=== PATIENT | female | born 1985 | race Caucasian/White ===

== ENCOUNTER 2022-05-14 11:35 | Day surgery (SDC) | payer BC, SELFPAY ==
[2022-05-14] VITALS (17 sets, daily range): BP systolic 87–123; BP diastolic 42–76; PULSE 48–88; RESP 16; TEMP 36.6–37; O2SAT 95–99; BMI 20.3
[2022-05-14] MEDS: LACTATED RINGERS 1000 ML 1,000 ML 100 ML IV (12:00)
--- NOTE | 2022-05-14 12:14 | SUR.PREOP ---
Presented negative COVID test at home. Taken at 5 pm on 05/13/2022.
[2022-05-14] MEDS: SODIUM CHLORIDE 0.9 % (FLUSH) 10 ML SYRINGE IVF (12:15)
[2022-05-14] MEDS: CEFAZOLIN 2 GM INJ IVP (13:00)
[2022-05-14] MEDS: LACTATED RINGERS 1000 ML 1,000 ML 75 ML IV (13:00)
[2022-05-14 13:42] LABS: Ur HCG Qualitative* Negative (Negative)
[2022-05-14] MEDS: BUPIVACAINE 0.25% 30 ML INJECTION (14:10)
--- NOTE | 2022-05-14 14:14 | P.GSOP_ITS ---
Operative Note Date of procedure: 05/14/22 Type of Procedure: 1. Open umbilical hernia repair with mesh. Procedure Description: After discussing the risks and benefits of the procedure, the patient signed informed consent.? The operative site was marked and the patient was brought to the operating room and placed on the operating table in supine position.? Care was taken to pad the patient's pressure points.?? The patient was then intubated by anesthesia.?? The operative site was then prepped and draped in the usual sterile fashion.? A time-out was then performed. A curvilinear skin incision was made with a scalpel just above the umbilicus excising an ellipse of redundant skin. Subcutaneous tissue was dissected with electrocautery down to the hernia sac and anterior fascia. The hernia sac was dissected off of the anterior fascia and the umbilicus. Subcutaneous fat around the fascial defect was dissected away from the fascial defect with cautery. The hernia sac was entered during mobilization and preperitoneal fat was incarcerated in the hernia sac. I then developed preperitoneal space for mesh insertion with cautery the fascial defect was approximately 1.8 cm. A small Ventralex ST mesh patch was then inserted into preperitoneal space and secured to the fascia using 0-0 Neurolon interrupted stitches. Fascia was re- approximated over the mesh with a running 0-0 Nurolon stitch. Additional local anesthetic was injected into subcutaneous tissues. Redundant floppy skin was excised to make the umbilicus cosmetically pleasing. An umbilicus was tacked down with interrupted 3-0 Vicryl stitches. Subdermal layer was closed with interrupted sutures using 3-0 Vicryl. Skin was closed with 4-0 Monocryl using subcuticular stitch. Steri strips were applied over the incision. I then placed a folded sterile 2 x 2 and 4x4 gauze over the incision and covered it with tape. All counts were correct at the end of the case. Patient tolerated the procedure well and was transferred to PACU without any complications. Findings: Preperitoneal fat incarcerated in the hernia sac. The hernia was repaired with small mesh patch. Implants: mesh Anesthesia: GETA Surgeon: Jodee George MD Estimated blood loss (mL): 5 Condition: stable Disposition: PACU
--- NOTE | 2022-05-14 14:31 | W.ANESCHARGE ---
Anesthesia Charges Start Date/Time Anesthesia Start Date: 05/14/22 Anesthesia Start Time: 12:56 Stop Date/Time Anesthesia Stop Date: 05/14/22 Anesthesia Stop Time: 14:21 Summary Emergency: No
[2022-05-14] MEDS: fentaNYL 100 MCG/2 ML inj 50 MCG IVP (14:38)
--- NOTE | 2022-05-14 14:52 | SUR.PHASEI ---
pt awake and says pain is beter wanting to go back to [facility]ds
--- NOTE | 2022-05-14 15:05 | W.ANESCHARGE ---
Anesthesia Charges Start Date/Time Anesthesia Start Date: 05/14/22 Anesthesia Start Time: 12:56 Stop Date/Time Anesthesia Stop Date: 05/14/22 Anesthesia Stop Time: 14:21 Summary Emergency: No
== END 2022-05-14 16:34 | disposition home or self-care (01) ==
PROVIDERS: Anesthesiology; PCP Family Medicine; Visit Provider Surgery
PROC: (CPT 49587; principal; 2022-05-14 13:00)
DX: K42.0 Umbilical hernia with obstruction, without gangrene (principal)
CPT/HCPCS: 49587; 00750; 00830; 81025; A4467; C1781; J0330; J0690; J1100; J2250; J2405; J2704; J2710; J3010; J3490; J7120

== ENCOUNTER 2024-10-09 20:29 | Emergency (ER) | payer BC, SELFPAY ==
--- OUTSIDE RECORDS SUMMARY | 2024-10-09 20:32 | XMS_ITS | Patient Health Record ---
Author Organization [facility] Address [address] [place] [address] Care Team Providers Care Employment Coach Name Role Phone PCP, Does not have a Primary Care Provider Best Brewer Unavailable [phone] Allergies Allergen (clinical drug ingredient) Drug/Non Drug Allergy documented on EMR Reaction Allergy Type Onset Date Status nickel Nickel Unknown Allergy Active Results Component Value Reference Range Notes X ray : Foot, left 3v Reviewed date:01/12/2024 04:43:07 PM Interpretation: Performing Lab: Notes/Report: LEFT FOOT, 3 views Comparison: None. FINDINGS: There is no evidence of acute fracture, dislocation, or osseous lesion. The joint spaces appear preserved. Tarsal bone alignment is normal. The adjacent soft tissues appear normal. There is no radiopaque foreign body. IMPRESSION: Normal left foot. /[place] LEFT FOOT, 3 views Comparison: None. FINDINGS: There is no evidence of acute fracture, dislocation, or osseous lesion. The joint spaces appear preserved. Tarsal bone alignment is normal. The adjacent soft tissues appear normal. There is no radiopaque foreign body. IMPRESSION: Normal left foot. Electronically jessica d by: Richard Fitzpatrick M.D. on 01/12/2024 04:08:42 PM US/[place] X ray : Ankle, left 3 views Reviewed date:01/12/2024 01:38:59 PM Interpretation:normal Performing Lab: Notes/Report: Exam Description: Three views of the ankle left. Comparison: None provided. Findings There is no significant soft tissue swelling appreciated. The soft tissues appear normal. There is no fracture or other acute osseous abnormality. Alignment of the ankle mortise is normal. IMPRESSION: There is no fracture or other acute osseous abnormality identified. /[place] Exam Description: Three v iews of the ankle left. Comparison: None provided. Findings There is no signific ant soft tissue swelling appreciated. The soft tissues appear normal. There is no fracture or other acute osseous abnormality. Alignment of the ank le mortise is normal. IMPRESSION: There is no fracture or other acute osseous abnormality identified. Electronically jessiac d by: Vadim Parikh M.D. on 01/12/2024 09:49:23 AM /[place] Reason For Referral No Information Social History Tobacco Use: Social History Observation Description Date Details (start date - stop date) Never Smoker NA - NA Tobacco Control (Standard) Question Answer Notes Tobacco use: Nonsmoker Vital Signs Heart Rate 60 /min 01/12/2024 Temperature 98.1 degrees Fahrenheit 01/12/2024 Blood pressure diastolic 77 mm Hg 01/12/2024 Oximetry 98 % 01/12/2024 Weight-kg 53.52 Kg 01/12/2024 Blood pressure systolic 124 mm Hg 01/12/2024 Weight 118 lbs 01/12/2024 Encounters Encounter Location Date Provider Diagnosis [address] [address] 01/12/2024 Best Carreno Injury of left ankle, initial encounter S99.912A Assessments Encounter Date Diagnosis (ICD Code) Assessment Notes Treatment Notes Treatment Clinical Notes Section Notes 01/12/2024 Injury of left ankle, initial encounter (ICD-10 - S99.912A) left ankle sprain, xray reassuring against fracture. Aircast for support, compression and protection along with ice and elevation for next 48-72 hours, then start working on range of motion exercises as we reviewed today. Plan Of Treatment No Information Insurance Providers Payer Name Payer Address Payer Phone Subscriber Number Group Number Insured Name Patient Relationship to Insured Coverage Start Date Coverage End Date [facility] [address] [place] [address] [id number] JAMEY LAGUNAS Self - patient is the insured
--- OUTSIDE RECORDS SUMMARY | 2024-10-09 20:32 | XMS_ITS | Clinical Summary ---
Author Organization [facility] Address [address] [place] [address] Care Team Providers Care Rib Cutter Name Role Phone Kati Lopez MD Primary Care Provider Allergies Active Allergy Reactions Criticality Noted Date Comments Nickel Rash 06/16/2013 Medications durable medical equipment (DME)Indication s:Seasonal affective disorder SAD lamp. 10,000 Luxe. 20-30 minutes daily. 1 Each 07/10/2018 Active multivitamin (MVI) tablet Take 1 Tablet by mouth once daily. 0 03/16/2021 Active FLUoxetine (PROZAC) 20 mg capsuleIndicati ons:Anxiety Take 1 Capsule (20 mg) by mouth every morning. 90 Capsule 3 05/21/2022 Active benzonatate (Tessalon Perles) 100 mg capsuleIndicati ons:Viral URI Take 1 Capsule (100 mg) by mouth 3 times daily if needed for Cough. 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 Plan: Pap and HPV in 5 years. Normal vaginal delivery 11/01/2021 Umbilical hernia without obstruction and without gangrene 09/16/2016 Resolved Problems Problem Noted Date Diagnosed Date Resolved Date Encounter for supervision of normal in second trimester 09/16/2016 08/03/2020 Overview (01/18/2019): Component Latest Ref Rng & Units 01/08/2019 Culture No Group B Streptococcus isolated. Estimated Date of Delivery: 02/04/19 Patient's last menstrual period was 04/30/2018 (exact date). Last Tdap- 11/27/2018 Last Flu vaccine- 03/29/2018 Glucose (GTT) result- Component Latest Ref Rng & Units 10/30/2018 HEMOGLOBIN 12.0 - 16.0 g/dL 13.5 MCV 80 - 100 fL 94 GLUCOSE,GESTATIONAL 65 - 139 mg/dL 82 TREPONEMA PALLIDUM Negative Negative 20 week US:IMPRESSION: 1.Breech presentation. 2.No intrinsic abnormalities noted on anatomic survey. 3.Composite ultrasound age 20 weeks 0 day with MONI of 02/05/2019 with an earlier established MONI of 02/05/2019. Allergies Allergen Reactions Nickel Rash Obstetric History T2 L2 SAB0 TAB0 Ectopic0 Multiple0 Live Births2 # Outcome Date GA Lbr Bahman/2nd Weight Sex Delivery Anes PTL Lv 3 Current 2 Term 06/20/13 39w6d 3.41 kg (7 lb 8.3 oz) M Vag NICOLETTE Name: CLAIR RALPH(JAMEY MOELLER) Apgar1: 8 Apgar5: 9 1 Term Create lab flowsheet for OB labs- Component Latest Ref Rng & Units 06/10/2018 06/10/2018 06/10/2018 3:47 PM 3:47 PM 3:47 PM ANTIBODY SCREEN Negative Negative SPECIMEN EXPIRATION DATE/TIME 06/13/18 23:59 HEMOGLOBIN 12.0 - 16.0 g/dL 13.7 MCV 80 - 100 fL 91 RUBELLA IGG ANTIBODY Positive 1.97 HEMOGLOBIN A1C SCREENING <6.4 % 5.2 ABORH A Rh Positive HBSAG Nonreactive Nonreactive HEPATITIS C ANTIBODY Non-Reactive Non-Reactive HIV-1/HIV-2 ANTIBODY Non-Reactive Non-Reactive TREPONEMA PALLIDUM Negative Negative Past Medical History: Diagnosis Date No Significant Past Medical History Past Surgical History: Procedure Laterality Date VAGINAL DELIVERY WISDOM TEETH EXTRACTION No data on file. Problems (from 06/10/18 to present) No problems associated with this episode. Janki Monet, RNC.....07/13/2018 8:13 AM Active labor at term 06/20/2013 019 Immunizations Immunization Administration Dates Next Due COVID-19 vaccine (Pfizer-Bio NTech 30mcg/0.3mL) 12YO+ BIVALENT PF, MDV 04/01/2022 Hepatitis A (Adult) 02/03/2008 Hepatitis B, Unspecified 05/27/2000,12/11/1999,0 11/08/1999 Influenza Virus, Unspecified 03/29/2018,04/09/20 13 Influenza, IIV3 (Age >=3 years) 04/12/2016 Influenza, IIV4 04/01/2022,,03/18/2019,04/18 MMR 11/08/1999 Meningococcal Vaccine (Menomune) 10/17/2005 Td, Preservative Free (age >= 7 Years) 0 Tdap 11/27/2018,12/02/2016,04/09/2013 Family History Relation Name Status Comments Father Alive Mother Alive Social History Tobacco Use Types Packs/Day Years Used Date Smoking Tobacco: Never Smokeless Tobacco: Never Tobacco Cessation:Counseling Given: No Alcohol Use Standard Drinks/Week Comments Yes 6 (1 standard drink = 0.6 oz pur e alcohol) PHQ-2 Answer Date Recorded PHQ-2 TOTAL SCORE 1 05/21/2022 Social Connections Answer Date Recorded Do you often feel lonely or isolated from those around you? 0 05/09/2023 Financial Resource Strain Answer Date R ecorded Difficulty of Paying Living Expenses 3 05/09/2023 Difficulty of Paying Living Expenses Not on file 05/09/2023 Food Insecurity Answer Date Recorded Do you worry your food will run out before you are able to buy more? 1 05/09/2023 Transportation Needs Answer Date Record ed Does lack of transportation keep you from medica l appointments? 1 05/09/2023 Does lack of transportation keep you from work, meetings or getting things that you need? 1 05/09/2023 Housing Stability Answer Date Recorded What is your housing situation today? 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 SYSTEMS ENGINEER Gender Identity Not on file Sexual Orientation Not on file Occupation Industry Job Start Date Job End Date Not on file Not on file Not on file Not on file Obstetrics History Para Term AB IAB SAB Ectopic Multiple Livin g Live Births 3 2 2 2 2 Date Outcome GA Total Labor Labor/2nd/3rd Weight Sex Type Anes PTL Nicolette A1 A5 Name Clin Term 013 Term 39w 6d 3.41 kg (7 lb 8.3 oz) M Vag Living 8 9 CLAIR STEIN (IVAN Osman) Delivery Location:[facility] Last Filed Vital Signs Vital Sign Reading Time Taken Comments Blood Pressure 113/75 06/08/2024 3:11 PM [employer] SYSTEMS ENGINEER Pulse 53 06/08/2024 3:11 PM [employer] SYSTEM[employer] ENGINEER Temperature 36.8 C (98.2 F) 05/09/2023 12:58 PM [employer] SYSTEMS ENGINEER Respiratory Rate 14 12/13/2020 1:23 PM CDT Oxygen Saturation 100% 06/08/2024 3:11 PM [employer]ION[employer] SYSTEMS ENGINEER Inhaled Oxygen Concentration - - Weight 54.7 kg (120 lb 11.2 oz) 06/08/2024 3:11 PM [employer] SYSTEMS ENGINEER Height 161.5 cm (5' 3.58) 04/01/2022 7:35 AM CD T Body Mass Index 20.99 04/01/2022 7:35 AM CDT Plan of Treatment Health Maintenance Due Date Last Done Comments BMI (ht and wt on same day) for age 18+ 04/01/2023 04/01/2022, 11/01/2021, 01/31/2020, Additional history exists Depression screening for age 12+ 05/21/2023 05/21/2022, 04/03/2022, 04/01/2022, Additional history exists COVID-19 vaccine series ( season) 2024 04/01/2022, 06/07/2021, 10/26/2020, Additional history exists Influenza Vaccine (Season Ended) 2025 04/01/2022, 05/02/2021, 03/18/2019, Additional history exists Pap test for age 21-65 04/01/2027 , 04/01/2022, 07/22/2016 Tetanus booster 11/27/2028 11/27/2018, 06/0 10/2016, 04/09/2013, Additional history exists HIV for age 15-65 Completed 06/10/2018, 06/26/2016 Hepatitis C screening for age 18-79 Completed 06/10/2018, 06/26/2016 Tdap Completed 11/27/2018, 06/0 10/2016, 04/09/2013 Pneumococcal series for age 6-49 Aged Out No longer eligible based on patient's age to complete this topic Procedures Procedure Name Priority Date/Time Associated Diagnosis Comments HPV HIGH RISK Routine 04/01/2022 8:24 AM CDT Screening for cervical cancer ANTI HIV 1/2 Routine 06/10/2018 3:47 PM [employer] SYSTEMS ENGINEER Encounter for supervision of normal first in first trimester (HC) ANTI HCV Routine 06/10/2018 3:47 PM [employer] SYSTEMS ENGINEER Encounter for supervision of normal first in first trimester (HC) from Last 3 Months or Most Recently Relevant to Health Maintenance Results * HPV HIGH RISK (04/01/2022 8:24 AM CDT) TYPE 16 Negative Negative 04/03/2022 5:13 PM CDT [facility] TYPE 18 Negative Negative 04/03/2022 5:13 PM CDT [facility] OTHER HIGH RISK TYPES Negative Negative 04/03/2022 5:13 PM CDT [facility] Other (Cervical) Non-Blood / Unknown 04/01/2022 8:24 AM CDT 04/02/2022 8:28 AM CDT Narrative [facility] - 04/03/2022 5:13 PM CDT HPV types 16, 18, 31, 33, 35, 39, 45, 51, 52, 56, 58, 59, 66 and 68 DNA were undetectable or below the pre-set threshold. Methodology: Delphine Jason 4800 HPV Test us Kati Lopez MD MICROBIOLOGY Final Resul t [facility] [address] [place] [address], [place] * ANTI HCV (06/10/2018 3:47 PM AVIONICS SYSTEMS ENGINEER) HEPATITIS C ANTIBODY Non-React ramone Non-React ramone 06/11/2018 5:47 PM AVIONICS SYSTEMS ENGINEER [facility] Comment:Antibodies to HCV no t detected; does not exclude the possibility of exposure to HCV. Blood BLOOD SPECIMEN / Unknown Venipuncture / Unknown 06/10/2018 3:47 PM AVIONICS SYSTEMS ENGINEER 06/10/2018 3:48 PM AVIONICS SYSTEMS ENGINEER Maliha GRANT SEND OUTS Final R esult [facility] [address] [place] [address], [place] * ANTI HIV 1/2 (06/10/2018 3:47 PM [employer]IONICS SYSTEMS ENGINEER) [facility] HIV-1/HIV-2 ANTIBODY Non-Reacti ve Non-Reacti ve 06/11/2018 5:45 PM AVIONICS SYSTEMS ENGINEER [facility] Comment:HIV-1 p24 and HIV-1/ HIV-2 Ab not detected. Blood BLOOD SPECIMEN / Unknown Venipuncture / Unknown 06/10/2018 3:47 PM AVIONICS SYSTEMS ENGINEER 06/10/2018 3:48 PM AVIONICS SYSTEMS ENGINEER Maliha GRANT [employer] Final R esult [facility] [address] [place] [address], from Last 3 Months or Most Recently Relevant to Health Maintenance Insurance [facility] Advance Directives * Full Code (Latest Code Status on File) Date Activated Date Inactivated Comments 06/20/2013 8:12 PM 06/22/2013 3:46 PM * Full Code Date Activated Date Inactivated Comments 06/20/2013 9:19 AM 06/20/2013 8:12 PM * Full Code Date Activated Date Inactivated Comments 06/20/2013 7:49 AM 06/20/2013 9:19 AM Care Teams Rib Cutter Relationship Specialty Start Date End Date Kati Lopez MD [address] [place] [address] PCP - General Family Practice 01/13/17
[2024-10-09 21:00] VITALS: BP 137/87; PULSE 63; RESP 16; TEMP 37.3; O2SAT 99; BMI 20.3
--- NOTE | 2024-10-09 21:14 | CRLHL7_ITS ---
For Patients: As a result of the Century Cures Act, medical imaging exams and procedure reports are released immediately into your electronic medical record. You may view this report before your referring provider. If you have questions, please contact your health care provider. INDICATION: RT ANTERIOR LOWER RIB PAIN, NO KNOWN INJURY. TECHNIQUE: Chest and right ribs 3 views. COMPARISON: None. FINDINGS: Cardiovascular and mediastinum: Heart size and vasculature are normal in caliber and appearance. Mediastinum is within normal limits. Lungs and pleural spaces: Lungs are clear. No sign of infiltrate or mass. No sign of pleural effusion. No pneumothorax. Bones and soft tissues: Detailed oblique images of the right ribs demonstrate no fractures or bone lesions. Few gas-filled bowel loops in the upper abdomen, nonspecific. IMPRESSION: Unremarkable chest and right ribs. Dictated by Mynor Kuhn MD @ 10/09/2024 10:19:46 PM (Electronically Signed)
--- NOTE | 2024-10-09 21:15 | ED_ITS ---
HPI - General Adult General Chief complaint: Chest Pain Stated complaint: Sharp Rib Pain Time Seen by Provider: 10/09/24 21:03 History of Present Illness HPI narrative: This 39-year-old female comes in reporting right anterior lower rib pain that occurred just prior to arrival. She was sitting at a movie and at the end of the movie when she got up she had sudden onset of severe pain in this area. The pain is distinctly worse with taking a deep breath. She does not report any injury event or strenuous activity recently. She does run 6 or 7 miles most every day without any difficulty. She is otherwise healthy. She does not report any shortness of breath. She arrives here with normal vital signs. Related Data Previous Rx's ?Medication ?Instructions ?Recorded ketorolac 10 mg tablet 10 mg PO TID 5 days #15 tabs 10/09/24 Allergies Allergy/AdvReac Type Severity Reaction Status Date / Time nickel Allergy Mild Rash Verified 06/24/24 11:34 Review of Systems Status of ROS: Reports: 10 or more systems reviewed and unremarkable except as noted in History and below Narrative: Constitutional: No fevers, no weight gain or loss. Eyes: No discharge. No vision changes. HENT: No congestion, no sore throat, no ear pain. Cardiovascular: No palpitations. Respiratory: No shortness of breath, no wheezes, no cough. Right-sided rib pain when taking a deep breath. Gastrointestinal: No abdominal pain, no vomiting, no diarrhea. Genitourinary: No dysuria, no hematuria. Musculoskeletal: Normal range of motion. Skin: No rashes, no pruritis. Neurological: No dizziness, weakness, sensory change, speech change. Endo/Heme/Allergies: No bruising or bleeding. No polydipsia. Pysch: no suicidality, no anxiety, no insomnia. All other systems reviewed and are negative. [facility] Medical History (Updated 10/09/24 @ 22:14 by Florencio Nobles MD) Depression ?F32.A - Depression, unspecified (ICD-10) Vaginal delivery ?O80 - Encounter for full-term uncomplicated delivery (ICD-10) Surgical History (Updated 05/14/22 @ 11:58 by Soraya Bethea RN) [place] teeth extracted ?K08.409 - Partial loss of teeth, unspecified cause, unspecified class (ICD- 10) Social History Smoking Status: Never smoker Do you use any of these nicotine containing products: None Second hand tobacco smoke exposure: No How often do you have a drink containing alcohol: monthly or less AUDIT-C Alcohol total score: 1 Non-prescribed substance use: denies use Exam Narrative: Exam Narrative: Constitutional: Well-developed, well-nourished, no acute distress. HEENT: Normocephalic, atraumatic. Neck: Normal range of motion. Nontender. Supple. Heart: Regular. No murmurs. Normal rate. Intact distal pulses. Lungs: Clear to auscultation. No chest discomfort. No wheezes, rhonchi, or rales. Abdomen: Normal bowel sounds. Nontender. No rebound tenderness. Genitalia: Deferred. Back: No midline tenderness. Normal range of motion. Extremities: Normal range of motion. No injury. Skin: Intact. No rash. Warm. No erythema or pallor. Neurologic: No altered sensation. No weakness. Alert and oriented. Psychiatric: No suicidality. No anxiety or depression. No insomnia. Nursing notes and vitals signs are reviewed. Const: Vital Signs, click to edit/add: Vital Signs - 24 hr 10/09/24 21:00 Temperature 99.1 F Pulse Rate [Pulse Oximeter] 63 Respiratory Rate 16 Blood Pressure [Ri ght Upper Arm] 137/87 Pulse Oximetry 99 Oxygen Delivery Me thod Room Air Course Vital Signs Vital signs: Initial Vital Signs Temperature 99.1 F 10/09/24 21:00 Temperature Source Temporal Artery Scan 10/09/24 21:00 Pulse Rate 63 10/09/24 21:00 Respiratory Rate 16 10/09/24 21:00 Blood Pressure 137/87 10/09/24 21:00 Blood Pressure Mean 103 10/09/24 21:00 Blood Pressure Position Sitting 10/09/24 21:00 Pulse Oximetry 99 10/09/24 21:00 Oxygen Delivery Method Room Air 10/09/24 21:00 Vital Signs Temperature 99.1 F 10/09/24 21:00 Pulse Rate 63 10/09/24 21:00 Respiratory Rate 16 10/09/24 21:00 Blood Pressure 137/87 10/09/24 21:00 Pulse Oximetry 99 10/09/24 21:00 Oxygen Delivery Method Room Air 10/09/24 21:00 Temperature 99.1 F 10/09/24 21:00 Pulse Rate 63 10/09/24 21:00 Respiratory Rate 16 10/09/24 21:00 Blood Pressure 137/87 10/09/24 21:00 Pulse Oximetry 99 10/09/24 21:00 Oxygen Delivery Method Room Air 10/09/24 21:00 Medications Administered Medications: Discontinued Medications Generic Name Dose Route Start Last Admin Trade Name Sohan PRN Reason Stop Dose Admin Ketorolac Tromethamine 10 mg 10/09/24 21:34 10/09/24 21:57 Ketorolac 10 Mg Tablet PO 10/09/24 21:35 10 mg ONCE ONE Administration Medical Decision Making MDM Narrative Medical decision making narrative: This patient comes in with sudden onset of severe pain in her right lower ribs. This pain is reproducible with a deep breath than with certain positions and movements. She does not report any injury event but states that she had been sitting for a couple hours at a movie theater and the pain occurred when she got up. I did obtain an x-ray of her chest with rib detail on the right side and by my review this shows no sign of abnormalities. Additionally lab results returned with normal findings. In particular her D-dimer and troponin are negative. The patient is not having much discomfort when sitting still but states that it seems to be worse with standing up and stretching. She did receive an oral dose of Toradol 10 mg and I did provide prescription for the same through [employer] machine. Lab Data Labs: Lab Results 10/09/24 Range/Units 21:26 WBC 7.40 (4.50-11.00) K/uL RBC 4.65 (4.00-5.20) m/uL Hgb 13.7 (12.0-16.0) gm/dL Hct 42.4 (33.0-51.0) % MCV 91 (80-100) fL MCH 30 (26-34) pg MCHC 32 (32-36) gm/dL RDW Coeff of [place] 12.9 (11.5-15.5) % Plt Count 233 (140-440) K/uL Neut % (Auto) 48.3 (42.0-72.0) % Lymph % (Auto) 45.1 H (20-44) % Lamar % (Auto) 5.4 (0.0-11.0) % Eos % (Auto) 0.9 (0.0-7.0) % Baso % (Auto) 0.3 (0.0-3.0) % Neut # (Auto) 3.57 (1.7-7.0) K/uL Lymph # (Auto) 3.30 H (0.90-2.90) K/uL Lamar # (Auto) 0.40 (0.00-0.90) K/UL Eos # (Auto) 0.07 (0.00-0.50) K/uL Baso # (Auto) 0.02 (0.00-0.30) K/uL Abs Immat Gran (auto) 0.00 (0.00-0.30) K/uL Imm/Tot Granulo (auto) 0.0 % D-Dimer Quant (PE/DVT) < 0.22 (0.00-0.50) ug/ml POC Troponin I 0.00 L (0.01-0.04) ng/ml Discharge Plan Discharge Clinical Impression: Chest wall pain Patient Disposition: Home, Self-Care Condition: Improved Additional Instructions: Take medication as needed and prescribed. Increase activity as tolerated. Follow up with MD return if worsening. Prescriptions: New ketorolac 10 mg tablet 10 mg PO TID 5 Days Qty: 15 0RF Follow Up/Referrals: Kati Lopez MD [Primary Care Provider] - Stand Alone Forms: [employer] Info Instructions
[2024-10-09 21:35] LABS: Basophils Absolute Auto 0.02 K/uL (0.00-0.30); Basophils Percent Auto 0.3 % (0.0-3.0); Eosinophils Absolute Auto 0.07 K/uL (0.00-0.50); Eosinophils Percent Auto 0.9 % (0.0-7.0); Hematocrit 42.4 % (33.0-51.0); Hemoglobin* 13.7 gm/dL (12.0-16.0); Lymphocytes Percent Auto 45.1 % (20-44); Mean Corpuscular HGB Conc 32 gm/dL (32-36); Mean Corpuscular Hemoglobin 30 pg (26-34); Mean Corpuscular Volume 91 fL (80-100); Monocytes Percent Auto 5.4 % (0.0-11.0); Neutrophils Absolute Auto 3.57 K/uL (1.7-7.0); Neutrophils Percent Auto 48.3 % (42.0-72.0); Platelet Count* 233 K/uL (140-440); RDW Coefficient of Variation % 12.9 % (11.5-15.5); Red Blood Count 4.65 m/uL (4.00-5.20)
[2024-10-09 21:36] LABS: Slide Review Reflex No
[2024-10-09] MEDS: KETOROLAC 10 MG TABLET PO (21:57)
[2024-10-09 22:03] LABS: D Dimer Quantitative* < 0.22 ug/ml (0.00-0.50)
--- OUTSIDE RECORDS SUMMARY | 2024-10-09 22:33 | XMS_ITS | Clinical Summary ---
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 Last Filed Vital Signs Vital Sign Reading Time Taken Comments Blood Pressure 113/75 06/08/2024 3:11 PM [employer] P[employer]IC HEATER Pulse 53 06/08/2024 3:11 PM [employer] P[employer]IC HE[employer] Temperature 36.8 C (98.2 F) 05/09/2023 12:58 PM [employer] PLASTIC HEATER Respiratory Rate 14 12/13/2020 1:23 PM CDT Oxygen Saturation 100% 06/08/2024 3:11 PM [employer] PLASTIC HEATER Inhaled Oxygen Concentration - - Weight 54.7 kg (120 lb 11.2 oz) 06/08/2024 3:11 PM [employer] PLASTIC HE[employer] Height 161.5 cm (5' 3.58) 04/01/2022 7:35 [...] ANTI HIV 1/2 Routine 06/10/2018 3:47 PM [employer] PLAST[employer] HE[employer] Encounter for supervision of normal first in first trimester (HC) ANTI HCV Routine 06/10/2018 3:47 PM [employer] P[employer] HE[employer] Encounter for supervision of normal first in first trimester (HC) from Last 3 Months or Most Recently Relevant to Health Maintenance Results * HPV HIGH RISK (04/01/2022 8:24 AM CDT) TYPE 16 Negative Negative 04/03/2022 5:13 PM CDT [facility] TYPE 18 Negative Negative 04/03/2022 5:13 PM CDT [facility] OTHER HIGH RISK TYPES Negative Negative 04/03/2022 5:13 PM CDT [facility] Other (Cervical) Non-Blood / Unknown 04/01/2022 8:24 AM CDT 04/02/2022 8:28 AM CDT Narrative [facility] - 04/03/2022 5:13 PM CDT HPV types 16, 18, 31, 33, 35, 39, 45, 51, 52, 56, 58, 59, 66 and 68 DNA were undetectable or below the pre-set threshold. Methodology: Delphine Jason 4800 HPV Test us Kati Lopez MD MICROBIOLOGY Final Resul t [facility] [address] [place] [address], [place] * ANTI HCV (06/10/2018 3:47 PM [employer] PLASTIC HEATER) HEPATITIS C ANTIBODY Non-React ramone Non-React ramone 06/11/2018 5:47 PM METAL AND PLASTIC HEATER [facility] Comment:Antibodies to HCV no t detected; does not exclude the possibility of exposure to HCV. Blood BLOOD SPECIMEN / Unknown Venipuncture / Unknown 06/10/2018 3:47 PM [employer] PLASTIC HEATER 06/10/2018 3:48 PM METAL AND PLASTIC HEATER Maliha GRANT SEND OUTS Final R esult [facility] [address] [place] [address], [place] * ANTI HIV 1/2 (06/10/2018 3:47 PM METAL AND PLASTIC HEATER) [facility] HIV-1/HIV-2 ANTIBODY Non-Reacti ve Non-Reacti ve 06/11/2018 5:45 PM [employer] PLASTIC HEATER [facility] TR[facility] Comment:HIV-1 p24 and HIV-1/ HIV-2 Ab not detected. Blood BLOOD SPECIMEN / Unknown Venipuncture / Unknown 06/10/2018 3:47 PM [employer] AND PLASTIC HEATER 06/10/2018 3:48 PM [employer] PLASTIC HEATER Maliha GRANT SEND OUTS Final R esult [facility] [address] [place] [address], from Last 3 Months or Most Recently Relevant to Health Maintenance Insurance [facility] Advance Directives * Full Code (Latest Code Status on File) Date Activated Date Inactivated Comments 06/20/2013 8:12 PM 06/22/2013 3:46 PM * Full Code Date Activated Date Inactivated Comments 06/20/2013 9:19 AM 06/20/2013 8:12 PM * Full Code Date Activated Date Inactivated Comments 06/20/2013 7:49 AM 06/20/2013 9:19 AM Care Teams Magnet Placer Relationship Specialty Start Date End Date Kati Lopez MD [address] [place] [address] PCP - General Family Practice 01/13/17
== END 2024-10-09 22:33 | disposition home or self-care (01) ==
PROVIDERS: Emergency Provider Emergency Medicine Emergency Medical Services; PCP Family Medicine
DX: R07.89 Other chest pain (principal)
CPT/HCPCS: 36415; 71101; 84484; 85025; 85379; 99284; A9270

== ENCOUNTER 2025-01-16 11:50 | Emergency (ER) | payer BC, SELFPAY ==
--- OUTSIDE RECORDS SUMMARY | 2025-01-16 11:52 | XMS_ITS | Patient Health Record ---
Author Organization [facility] Address [address] [place] [address] Care Team Providers Care Organization Development Consultant Name Role Phone PCP, Does not have a Primary Care Provider Unava ilable Allergies Allergen (clinical drug ingredient) Drug/Non Drug Allergy documented on EMR Reaction Allergy Type Onset Date Status nickel Nickel Unknown Allergy Active Reason For Referral No Information Social History Tobacco Use: Social History Observation Description Date Details (start date - stop date) Never Smoker NA - NA Tobacco Control (Standard) Question Answer Notes Tobacco use: Nonsmoker Plan Of Treatment No Information Insurance Providers Payer Name Payer Address Payer Phone Subscriber Number Group Number Insured Name Patient Relationship to Insured Coverage Start Date Coverage End Date [facility] [address] [place] [address] [id number] JAMEY LAGUNAS Self - patient is the insured
--- OUTSIDE RECORDS SUMMARY | 2025-01-16 11:52 | XMS_ITS | Clinical Summary ---
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 Gender Identity Not on file Sexual Orientation [...] 8 9 CLAIR STEIN (IVAN Osman) Delivery Location:[facility] Last Filed Vital Signs Vital Sign Reading Time Taken Comments Blood Pressure 113/75 06/08/2024 3:11 PM SOLO MUSICIAN Pulse 53 06/08/2024 3:11 PM [employer]O MUSICIAN Temperature 36.8 C (98.2 F) 05/09/2023 12:58 PM SOLO MUSICIAN Respiratory Rate 14 12/13/2020 1:23 PM CDT Oxygen Saturation 100% 06/08/2024 3:11 PM SOLO MUSICIAN Inhaled Oxygen Concentration - - Weight 54.7 kg (120 lb 11.2 oz) 06/08/2024 3:11 PM SOLO MUSICIAN Height 161.5 cm (5' 3.58) 04/01/2022 7:35 [...] 06/07/2021, 10/26/2020, Additional history exists Influenza Vaccine (#1) 2025 , 05/02/2021, 03/18/2019, Additional history exists Pap test for age 21-65 04/01/2027 2, 04/01/2022, 07/22/2016 Tetanus booster 11/27/2028 11/27/2018, 06/0 10/2016, 04/09/2013, Additional history exists Hepatitis B series for 19+ Completed 05/27, 12/11/1999, 11/08/1999 HIV for age 15-65 Completed 06/10/2018, 06/26/2016 Hepatitis C screening for age 18-79 Completed 06/10/2018, 06/26/2016 Pneumococcal series for age 6-49 Aged Out No longer eligible based on patient's age to complete this topic Procedures Procedure Name Priority Date/Time Associated Diagnosis Comments HPV HIGH RISK Routine 04/01/2022 8:24 AM CDT Screening for cervical cancer ANTI HIV 1/2 Routine 06/10/2018 3:47 PM [employer]O [employer]IC[employer] Encounter for supervision of normal first in first trimester (HC) ANTI HCV Routine 06/10/2018 3:47 PM [employer]O [employer]ICIAN Encounter for supervision of normal first in first trimester (HC) from Last 3 Months or Most Recently Relevant to Health Maintenance Results * HPV HIGH RISK (04/01/2022 8:24 AM CDT) TYPE 16 Negative Negative 04/03/2022 5:13 PM CDT [facility] TYPE 18 Negative Negative 04/03/2022 5:13 PM CDT [facility] OTHER HIGH RISK TYPES Negative Negative 04/03/2022 5:13 PM CDT [facility] Other (Cervical) Non-Blood / Unknown 04/01/2022 8:24 AM CDT 04/02/2022 8:28 AM CDT Narrative [facility] - 04/03/2022 5:13 PM CDT HPV types 16, 18, 31, 33, 35, 39, 45, 51, 52, 56, 58, 59, 66 and 68 DNA were undetectable or below the pre-set threshold. Methodology: Delphine Jason 4800 HPV Test us Kati Lopez MD MICROBIOLOGY Final Resul t [facility] [address] [place] [id number], [place] * ANTI HCV (06/10/2018 3:47 PM SOLO MUSICIAN) Pathologist [facility] HEPATITIS C ANTIBODY Non-React ramone Non-React ramone 06/11/2018 5:47 PM SOLO MUSICIAN [facility] TR[facility] Comment:Antibodies to HCV no t detected; does not exclude the possibility of exposure to HCV. Blood BLOOD SPECIMEN / Unknown Venipuncture / Unknown 06/10/2018 3:47 PM SOLO MUSICIAN 06/10/2018 3:48 PM SOLO MUSICIAN Maliha GRANT SEND OUTS Final R esult [facility] [address] [place] [address], [place] * ANTI HIV 1/2 (06/10/2018 3:47 PM SOLO MUSICIAN) [facility] HIV-1/HIV-2 ANTIBODY Non-Reacti ve Non-Reacti ve 06/11/2018 5:45 PM SOLO MUSICIAN [facility] TR[facility] Comment:HIV-1 p24 and HIV-1/ HIV-2 Ab not detected. Blood BLOOD SPECIMEN / Unknown Venipuncture / Unknown 06/10/2018 3:47 PM SOLO MUSICIAN 06/10/2018 3:48 PM SOLO MUSICIAN Maliha GRANT SEND OUTS Final R esult [facility] [address] [place] [address], from Last 3 Months or Most Recently Relevant to Health Maintenance Insurance [facility] Advance Directives * Full Code (Latest Code Status on File) Date Activated Date Inactivated Comments 06/20/2013 8:12 PM 06/22/2013 3:46 PM * Full Code Date Activated Date Inactivated Comments 06/20/2013 9:19 AM 06/20/2013 8:12 PM * Full Code Date Activated Date Inactivated Comments 06/20/2013 7:49 AM 06/20/2013 9:19 AM Care Teams Research Engineer Marine Equipment Relationship Specialty Start Date End Date Kati Lopez MD [address] [place] [address] PCP - General Family Practice 01/13/17
[2025-01-16 11:57] VITALS: BP 116/76; PULSE 70; RESP 16; TEMP 37.5; O2SAT 98
--- NOTE | 2025-01-16 12:08 | ED.FALL ---
HPI - Fall General Time Seen by Provider: 12:08 Date Seen: 01/16/25 Chief Complaint: Fall/Minor Trauma Stated Complaint: face/arm/hands, from fall Time Seen by Provider: 01/16/25 12:08 Source: patient and RN notes reviewed Mode of arrival: ambulatory Limitations: no limitations History of Present Illness HPI Narrative: This very pleasant 39-year-old female presents to the ED of her own accord after a fall while running. She was on mi 05/13, admit she was tiring some. There was a root underneath the sidewalk that had lifted it. She tripped done this and landed on the asphalt. She hit her right cheek and has swelling on the cheek bone below the eye, denies any visual changes. She has not had any bleeding from her nose. She denies any neck or back pain, no difficulty with breathing or chest pain. Her right shoulder hurts, there is an abrasion there but also it hurts to try to lift it. She denies any abdominal pain. She does have some small abrasions on the palms of the hands but no pain with range of motion of the bones of the hands or wrists. Her elbows do not hurt. She did have superficial tissue injury on the right knee but the right knee does feel sore. She still can walk. Nothing else is injured, denies any loss of consciousness, no headache. Her tetanus is confirmed to be up-to-date in 2019. complaint: fall Related Data Home Medications ?Medication ?Instructions ?Recorded ?Confirmed No Known Home Medications 01/16/25 01/16/25 Allergies Allergy/AdvReac Type Severity Reaction Status Date / Time nickel Allergy Mild Rash Verified 01/16/25 11:56 Review of Systems Status of ROS: Reports: 6 or more systems reviewed and unremarkable except as noted in History and below [facility] Medical History Depression ?F32.A - Depression, unspecified (ICD-10) Vaginal delivery ?O80 - Encounter for full-term uncomplicated delivery (ICD-10) Surgical History [place] teeth extracted ?K08.409 - Partial loss of teeth, unspecified cause, unspecified class (ICD-10) Social History Smoking Status: Never smoker Do you use any of these nicotine containing products: None Second hand tobacco smoke exposure: No How often do you have a drink containing alcohol: monthly or less AUDIT-C Alcohol total score: 1 Non-prescribed substance use: denies use Exam Const: Vital Signs, click to edit/add: Vital Signs - 24 hr 01/16/25 11:57 Temperature 99.5 F Pulse Rate [Pulse Oximeter] 70 Respiratory Rate 16 Blood Pressure [Le ft Upper Arm] 116/76 Pulse Oximetry 98 Oxygen Delivery Me thod Room Air This 39-year-old female is alert, interactive, no apparent distress but it is is upset. Pupils are equal round reactive, sclera clear come extraocular muscles intact, denies any visual field cuts or double vision. She has significant ecchymosis and swelling but no open wound over the zygomatic arch below the right eye. She does have symmetric facial function, oropharynx normal. No pain with opening or closing the mouth. Back inspected, no traumatic change, no midline tenderness of her cervical spine or thoracic spine throughout the lumbar spine. Lungs are clear, good air entry, no wheezing or crackles, no tachypnea, no accessory muscle use. CV regular rate and rhythm, no murmur, normal S1-S2, no S3-S4. She is nontender over the clavicles. She has superficial abrasion over the lateral aspect of her right shoulder, there is some underlying soft tissue changes. She is able to mobilize the shoulder but at about 45? states there is pain in that shoulder area. Further examination of the shoulder is halted and will image this. She can fully flex and extend the elbows with her upper arms by her side, full range of motion of her wrists and fingers, neurovascular of her upper extremities intact. Superficial abrasions at the base of the palms in the center both hands. No tenderness over the hips, has some ecchymosis and superficial abrasion laterally along the anterolateral right knee. No joint line tenderness, patient was ambulatory into the ED. No significant swelling at of this knee. Otherwise the rest of her lower extremities unaffected with any traumatic change. Documenting provider has reviewed patient's vital signs: yes Course Course ED Course: This 39-year-old female has had a fall with trauma to her right zygomatic arch, right shoulder with pain with range of motion and some pain in the right knee. Denies loss of consciousness or pain elsewhere, no chance of and no blood thinners. We will do facial bone CT, have discussed the importance of knowing a facial fracture, particularly if there is any extension into the inferior orbital rim. She understands and is in agreement to have this imaging done. We also will do plain images of her right shoulder and her right knee. Hopefully these are just superficial. Did discuss with her that if we do not see a fracture in the shoulder, there still can be the possibility of rotator cuff injury or trauma as a result of a fall. It can be difficult initially in the immediate. After the injury to fully identify this as there can be pain and soft tissue injury. She may need to follow-up for re-evaluation of this right shoulder. Nursing staff is working on cleaning the abrasions. Will cover these with bacitracin bandages once cleaned. Reevaluation(s) Time of Reevaluation #1: 13:27 Reevaluation #1: Reviewed with patient her negative x-ray reports and facial CT for fractures. There is a visible hematoma on her right cheek, the hematoma has increased some since she has been here. Vital Signs Vital signs: Initial Vital Signs Temperature 99.5 F 01/16/25 11:57 Temperature Source Temporal Artery Scan 01/16/25 11:57 Pulse Rate 70 01/16/25 11:57 Pulse Rhythm Regular 01/16/25 11:57 Respiratory Rate 16 01/16/25 11:57 Blood Pressure 116/76 01/16/25 11:57 Blood Pressure Mean 89 01/16/25 11:57 Blood Pressure Position Sitting 01/16/25 11:57 Pulse Oximetry 98 01/16/25 11:57 Oxygen Delivery Method Room Air 01/16/25 11:57 Vital Signs Temperature 99.5 F 01/16/25 11:57 Pulse Rate 70 01/16/25 11:57 Respiratory Rate 16 01/16/25 11:57 Blood Pressure 116/76 01/16/25 11:57 Pulse Oximetry 98 01/16/25 11:57 Oxygen Delivery Method Room Air 01/16/25 11:57 Temperature 99.5 F 01/16/25 11:57 Pulse Rate 70 01/16/25 11:57 Respiratory Rate 16 01/16/25 11:57 Blood Pressure 116/76 01/16/25 11:57 Pulse Oximetry 98 01/16/25 11:57 Oxygen Delivery Method Room Air 01/16/25 11:57 Medications Administered Medications: Discontinued Medications Generic Name Dose Route Start Last Admin Trade Name Freq PRN Reason Stop Dose Admin Bacitracin Zinc 1 each 01/16/25 12:20 01/16/25 12:25 Bacitracin 0.9 Gm Packet TOPICAL 01/16/25 12:21 1 each ONCE ONE Administration Bacitracin Zinc 1 each 01/16/25 12:20 01/16/25 12:25 Bacitracin 0.9 Gm Packet TOPICAL 01/16/25 12:21 1 each ONCE ONE Administration Ibuprofen 600 mg 01/16/25 12:20 01/16/25 12:24 Ibuprofen 200 Mg Tablet PO 01/16/25 12:21 600 mg ONCE ONE Administration MDM - Fall Imaging Data CT facial bones: Attestation: I have reviewed the pertinent imaging results. Radiologist's impression: Patient: JAMEY LAGUNAS Facility:?[facility] Patient ID:?[id number] Site Patient ID:?[id number] Site :?[id number] Study:?CT-Facial WITHOUT-01/16/2025 12:43:09 PM Ordering Physician:Sabina Bliss Final Report: Indication: Trauma. Facial pain. Right cheek swelling Technique: Noncontrast axial CT of the facial bones with coronal reformats are provided. No comparisons. Findings: The visualized paranasal sinuses are clear. The ostiomeatal complexes are patent bilaterally. The visualized intraorbital contents appear within normal limits. The visualized osseous structures of the face appear intact. Uzny-zl-vzcthhsg soft tissue swelling overlying the right cheek compatible with an underlying hematoma. Impression: 1. No radiographic evidence of acute osseous injury. 2. Apyz-fj-wsxhltrb soft tissue swelling overlying the right cheek compatible with an underlying hematoma. Please note that all CT scans at this facility use dose modulation, iterative reconstruction, and/or weight-based dosing when appropriate to reduce radiation dose to as low as reasonably achievable. Dictated by Edenilson De Oliveira MD @ 01/16/2025 12:46:56 PM (Electronic Signa XR right shoulder: Attestation: I have reviewed the pertinent imaging results. Radiologist's impression: Patient: JAMEY LAGUNAS Facility:?[facility] Patient ID:?[id number] Site Patient ID:?[id number]. Site :?1985 Study:?XRay-Shoulder Right -01/16/2025 12:51:20 PM Ordering Physician:Sabina Bliss Final Report: Indication: Fall while running Comparison: None available. Technique: 3 views of the right shoulder were obtained Findings: There is no displaced fracture or dislocation. The joint spaces are grossly preserved. The soft tissues are unremarkable. Impression: No acute osseus abnormality. Dictated by Osorio Stone MD @ 01/16/2025 1:19:33 PM (Electronic Signature) XR right knee: Attestation: I have reviewed the pertinent imaging results. Radiologist's impression: Patient: JAMEY LAGUNAS Facility:?[facility] Patient ID:?[id number] Site Patient ID:?[id number]. Site :?1985 Study:?XRay-Knee Right -01/16/2025 12:51:11 PM Ordering Physician:Sabina Bliss Final Report: Indication: Fall while running Comparison: None available. Technique: 2 views of the right knee were obtained Findings: There is no displaced fracture or dislocation. The joint spaces are grossly preserved. The soft tissues are unremarkable. Impression: No acute osseus abnormality. Dictated by Osorio Stone MD @ 01/16/2025 1:20:14 PM (Electronic Signature) Discharge Plan Discharge Clinical Impression: Acute pain of right shoulder, Acute pain of right knee, Multiple abrasions Fall Qualifiers: Encounter type: initial encounter Qualified Code(s): W19.XXXA - Unspecified fall, initial encounter Traumatic hematoma of face Qualifiers: Encounter type: initial encounter Qualified Code(s): S00.83XA - Contusion of other part of head, initial encounter Patient Disposition: Home, Self-Care Condition: Stable Instructions: Abrasion (ED), Knee Pain (ED), Shoulder Pain (ED), Hematoma (ED) Additional Instructions: Use ice to bruised or painful areas, particularly to your face. Ice over the next few days as much as you are able to will help decrease pain and further swelling. Fine to use Tylenol and ibuprofen per bottle directions as needed for pain control. Can use bacitracin and bandages changed daily to twice daily as needed for healing the wounds. Do the pendulum exercises I demonstrated with the shoulder. If your range of motion of her shoulder is not improving and continues to be painful, do recommend re-evaluation in clinic for evaluation of possible traumatic injury to the rotator cuff. Likewise, if your knee continues to be painful and is not improving over the next week, this should be re-evaluated. If you have any concerns, feel the abrasions are becoming infected, have new issues or develops new symptoms, please seek re-evaluation. Activity Level: Activity as Tolerated Prescriptions: No Action No Known Home Medications Follow Up/Referrals: Kati Lopez MD [Primary Care Provider, Family Practice] Stand Alone Forms: [employer] Info Instructions
--- NOTE | 2025-01-16 12:19 | CRLHL7_ITS ---
For Patients: As a result of the Century Cures Act, medical imaging exams and procedure reports are released immediately into your electronic medical record. You may view this report before your referring provider. If you have questions, please contact your health care provider. Indication: Trauma. Facial pain. Right cheek swelling Technique: Noncontrast axial CT of the facial bones with coronal reformats are provided. No comparisons. Findings: The visualized paranasal sinuses are clear. The ostiomeatal complexes are patent bilaterally. The visualized intraorbital contents appear within normal limits. The visualized osseous structures of the face appear intact. Kboe-nq-wyuzselg soft tissue swelling overlying the right cheek compatible with an underlying hematoma. Impression: 1. No radiographic evidence of acute osseous injury. 2. Dgpt-uc-nrintlju soft tissue swelling overlying the right cheek compatible with an underlying hematoma. Please note that all CT scans at this facility use dose modulation, iterative reconstruction, and/or weight-based dosing when appropriate to reduce radiation dose to as low as reasonably achievable. Dictated by Edenilson De Oliveira MD @ 01/16/2025 12:46:56 PM (Electronically Signed)
--- NOTE | 2025-01-16 12:19 | CRLHL7_ITS ---
For Patients: As a result of the Century Cures Act, medical imaging exams and procedure reports are released immediately into your electronic medical record. You may view this report before your referring provider. If you have questions, please contact your health care provider. Indication: Fall while running Comparison: None available. Technique: 3 views of the right shoulder were obtained Findings: There is no displaced fracture or dislocation. The joint spaces are grossly preserved. The soft tissues are unremarkable. Impression: No acute osseus abnormality. Dictated by Osorio Stone MD @ 01/16/2025 1:19:33 PM (Electronically Signed)
--- NOTE | 2025-01-16 12:19 | CRLHL7_ITS ---
For Patients: As a result of the Century Cures Act, medical imaging exams and procedure reports are released immediately into your electronic medical record. You may view this report before your referring provider. If you have questions, please contact your health care provider. Indication: Fall while running Comparison: None available. Technique: 2 views of the right knee were obtained Findings: There is no displaced fracture or dislocation. The joint spaces are grossly preserved. The soft tissues are unremarkable. Impression: No acute osseus abnormality. Dictated by Osorio Stone MD @ 01/16/2025 1:20:14 PM (Electronically Signed)
[2025-01-16] MEDS: IBUPROFEN 200 MG TABLET 600 MG PO (12:24)
[2025-01-16] MEDS: BACITRACIN 0.9 GM PACKET 1 EACH TOPICAL ×2 (12:25)
== END 2025-01-16 13:53 | disposition home or self-care (01) ==
PROVIDERS: Emergency Provider Family Medicine; PCP Family Medicine
DX: S00.81XA Abrasion of other part of head, initial encounter (principal); M25.561 Pain in right knee; M25.511 Pain in right shoulder; W19.XXXA Unspecified fall, initial encounter; Y93.02 Activity, running
CPT/HCPCS: 70486; 73030; 73560; 99284; A9270